=== PATIENT | male | born 2000 | race African-American/Black ===

== ENCOUNTER 2022-05-04 19:54 | Emergency (ER) | payer MEDICAID ==
[~2022-05-04] VITALS: Ht 177.8 cm; Wt 78.8 kg
[2022-05-05] MEDS ORDERED: ACETAMINOPHEN 325MG TABLET PO ONE (01:45)
[2022-05-05] MEDS ORDERED: IBUPROFEN 400MG TABLET PO ONE (01:45)
[2022-05-05] MEDS ORDERED: AMOX1TAB16 MT (02:52)
[2022-05-05 03:00] VITALS: BP 125/78
== END 2022-05-05 03:00 | disposition home or self-care (01) ==
LOC: ER 19:54
DX: J02.9 Acute pharyngitis, unspecified (principal); R51.9 Headache, unspecified
CPT/HCPCS: 99283